=== PATIENT | female | born 1980 | race Caucasian/White ===

== ENCOUNTER 2018-05-20 00:47 | Observation (INO) | payer BC ==
[2018-05-20] MEDS ORDERED: Albuterol/Ipratropium 3.0-0.5 MG/3 ML Neb Soln ONE (00:49)
[2018-05-20] MEDS ORDERED: Albuterol/Ipratropium 3.0-0.5 MG/3 ML Neb Soln NEB ONE ×3 (00:53→01:38)
[2018-05-20] MEDS ORDERED: methylPREDNISolone Sodium Succinate 125 MG/2 ML SDV IM ONE (00:54)
[2018-05-20] MEDS ORDERED: methylPREDNISolone Sodium Succinate 125 MG/2 ML SDV IVPUSH ONE (00:55)
[2018-05-20] MEDS ORDERED: Magnesium Sulfate/Water 2 GM in Premix Bag 1 BAG IV ONE (00:56)
--- NOTE | 2018-05-20 00:57 | EDM.PDOC ---
ED HPI GENERAL MEDICAL PROBLEM - General Chief Complaint: Respiratory Problem Stated Complaint: SHORTNESS OF BREATH, ASTHMA Time Seen by Provider: 05/20/18 00:53 Source of Information: Reports: Patient, Family History Limitations: Reports: No Limitations - History of Present Illness INITIAL COMMENTS - FREE TEXT/NARRATIVE: HISTORY AND PHYSICAL: History of present illness: 37-year-old female presenting department with chief complaint of shortness of breath 2 days with past medical history of asthma. As per and patient, her breathing has been progressively getting worse over the past 2 days with increasing shortness of breath and wheezing. States that the recent smoke seemed to exacerbate her symptoms. Today she treated herself with multiple treatments of Neb's but then this evening she did not have any improvement so came to emergency department for further evaluation. States that also today she was feeling somewhat ill with some mild fever and chills but has also had some allergies and equated it to that. Patient is originally from [place] but has been here for approximately one year. She has not seen a primary care provider here. States that at one time she was on a daily medication for her asthma but has not needed it for approximately 1 year. The last 6 months she has been doing well without any treatments needed. On initial exam patient is satting in the low 80s she has generalized decreased air movement and significant wheezing heard throughout. She is somewhat diaphoretic and anxious appearing. Patient did have significant improvement with first duoneb however still generalized wheezing. After second duo-neb, solumedrol and mag patient improved but still requiring O2 to maintain sat >92% Review of systems: As per history of present illness and below otherwise all systems reviewed and negative. Past medical history: As per history of present illness and as reviewed below otherwise noncontributory. Surgical history: As per history of present illness and as reviewed below otherwise noncontributory. Social history: No reported history of drug or alcohol abuse. Family history: As per history of present illness and as reviewed below otherwise noncontributory. Physical exam: HEENT: Atraumatic, normocephalic, pupils reactive, negative for conjunctival pallor or scleral icterus, mucous membranes moist, throat clear, neck supple, nontender, trachea midline. Lungs: Generalized wheezing with decreased air movement throughout, chest nontender. Heart: S1S2, regular, negative for clicks, rubs, or JVD. Abdomen: Soft, nondistended, nontender. Negative for masses or hepatosplenomegaly. Negative for costovertebral tenderness. Pelvis: Stable nontender. Genitourinary: Deferred. Rectal: Deferred. Extremities: Atraumatic, negative for cords or calf pain. Neurovascular unremarkable. Neuro: Awake, alert, oriented. Cranial nerves II through XII unremarkable. Cerebellum unremarkable. Motor and sensory unremarkable throughout. Exam nonfocal. Diagnostics: CBC, BMP, chest x-ray Therapeutics: DuoNeb 2, Solu-Medrol 125 mg IV 1, mag sulfate 2 mg IV 1 Impression: Shortness of breath Acute asthma exacerbation Hypokalemia Plan: Patient received 3 duo-nebs as well as 125 mg Solu-Medrol IV and 2 mag sulfate. She did have significant improvement however was still requiring oxygen to maintain saturations greater than 90%. Secondary to this I did call hospitalist Dr. Stiles who accepted the patient for admission observation telemetry asthma exacerbation. Definitive disposition and diagnosis as appropriate pending reevaluation and review of above. chest Pain Score (Numeric/FACES): 5 - Related Data Allergies Allergy/AdvReac Type Severity Reaction Status Date / Time No Known Allergies Allergy Verified 05/20/18 00:54 Home Meds: Home Meds Albuterol [Proventil HFA] 200 puff INH Q6H 05/20/18 [History] ED ROS GENERAL - Review of Systems Review Of Systems: ROS reveals no pertinent complaints other than HPI. ED EXAM, GENERAL - Physical Exam Exam: See Below Course - Vital Signs Last Recorded V/S: Last Vital Signs Temp 97.4 F 05/20/18 00:56 Pulse 110 H 05/20/18 01:20 Resp 23 H 05/20/18 01:20 BP 127/65 05/20/18 01:20 Pulse Ox 97 05/20/18 01:20 - Orders/Labs/Meds Orders: Active Orders 24 hr Category Date Time Status RT Aerosol Therapy [RC] ASDIRECTED Care 05/20/18 00:53 Active RT Aerosol Therapy [RC] ASDIRECTED Care 05/20/18 01:08 Active RT Aerosol Therapy [RC] ASDIRECTED Care 05/20/18 01:38 Ordered CXR [Chest 1V Frontal] [CR] Stat Exams 05/20/18 00:55 Ordered Magnesium Sulfate/Water [Magnesium Sulfate 2 GM in Med 05/20/18 00:56 Active Water 50 ML] 2 gm Premix Bag 1 bag IV ONETIME Medication Orders Magnesium Sulfate 2 gm/ Premix 50 mls @ 25 mls/hr IV ONETIME ONE Stop: 05/20/18 02:55 Last Admin: 05/20/18 01:06 Dose: 25 mls/hr Labs: Laboratory Tests 05/20/18 05/20/18 Range/Units 00:55 00:55 WBC 11.19 H (4.0-11.0) K/uL RBC 4.23 L (4.30-5.90) M/uL Hgb 10.1 L (12.0-16.0) g/dL Hct 31.7 L (36.0-46.0) % MCV 74.9 L (80.0-98.0) fL MCH 23.9 L (27.0-32.0) pg MCHC 31.9 (31.0-37.0) g/dL RDW Std Deviation 43.5 (28.0-62.0) fl RDW Coeff of Rishabh 16 H (11.0-15.0) % Plt Count 216 (150-400) K/uL MPV 12.40 H (7.40-12.00) fL Neut % (Auto) 74.1 (48.0-80.0) % Lymph % (Auto) 12.2 L (16.0-40.0) % [place] % (Auto) 8.0 (0.0-15.0) % Eos % (Auto) 5.4 (0.0-7.0) % Baso % (Auto) 0.3 (0.0-1.5) % Neut # (Auto) 8.3 H (1.4-5.7) K/uL Lymph # (Auto) 1.4 (0.6-2.4) K/uL [place] # (Auto) 0.9 H (0.0-0.8) K/uL Eos # (Auto) 0.6 (0.0-0.7) K/uL Baso # (Auto) 0.0 (0.0-0.1) K/uL Sodium 139 (136-145) mmol/L Potassium 3.2 L (3.5-5.1) mmol/L Chloride 105 (98-107) mmol/L Carbon Dioxide 24.9 (21.0-32.0) mmol/L BUN 9 (7.0-18.0) mg/dL Creatinine 1.0 (0.6-1.0) mg/dL Est Cr Clr Drug Dosing 72.81 mL/min Estimated GFR (MDRD) > 60.0 ml/min Glucose 154 H (74-106) mg/dL Calcium 8.3 L (8.5-10.1) mg/dL Meds: Medications Generic Name Dose Route Start Last Admin Trade Name Chong PRN Reason Stop Dose Admin Magnesium Sulfate 2 gm/ Premix 50 mls @ 25 mls/hr 05/20/18 00:56 05/20/18 01: 06 IV 05/20/18 02:55 25 mls/hr ONETIME ONE Administration Discontinued Medications Generic Name Dose Route Start Last Admin Trade Name Chong PRN Reason Stop Dose Admin Albuterol/Ipratropium Confirm 05/20/18 00:49 05/20/18 01:15 Duoneb 3.0-0.5 Mg/3 Ml Administered 05/20/18 00:50 Not Given Dose 3 ml .ROUTE .STK-MED ONE Albuterol/Ipratropium 3 ml 05/20/18 00:53 05/20/18 00:55 Duoneb 3.0-0.5 Mg/3 Ml NEB 05/20/18 00:54 3 ml ONETIME ONE Administration Albuterol/Ipratropium 3 ml 05/20/18 01:08 05/20/18 01:12 Duoneb 3.0-0.5 Mg/3 Ml NEB 05/20/18 01:09 3 ml ONETIME ONE Administration Albuterol/Ipratropium 3 ml 05/20/18 01:38 Duoneb 3.0-0.5 Mg/3 Ml NEB 05/20/18 01:39 ONETIME ONE Methylprednisolone Sodium Succinate 125 mg 05/20/18 00:54 05/20/18 01:14 Solu-Medrol IM 05/20/18 00:55 Not Given ONETIME ONE Methylprednisolone Sodium Succinate 125 mg 05/20/18 00:55 05/20/18 01:01 Solu-Medrol IVPUSH 05/20/18 00:56 125 mg ONETIME ONE Administration Potassium Chloride 40 meq 05/20/18 01:26 Klor-Con M20 PO 05/20/18 01:27 ONETIME ONE Departure - Departure Time of Disposition: 01:47 Disposition: Admitted As Inpatient 67 Condition: Fair Clinical Impression: Hypoxia, Shortness of breath Asthma exacerbation Qualifiers: Asthma severity: moderate Asthma persistence: persistent Qualified Code(s): J45.41 - Moderate persistent asthma with (acute) exacerbation - Discharge Information Referrals: PCP,None [Primary Care Provider] - Forms: ED Department Discharge - My Orders Last 24 Hours: My Active Orders 05/20/18 00:53 RT Aerosol Therapy [RC] ASDIRECTED 05/20/18 00:55 CXR [Chest 1V Frontal] [CR] Stat 05/20/18 00:56 Magnesium Sulfate/Water [Magnesium Sulfate 2 GM in Water 50 ML] 2 gm Premix Bag 1 bag IV ONETIME 05/20/18 01:08 RT Aerosol Therapy [RC] ASDIRECTED 05/20/18 01:38 RT Aerosol Therapy [RC] ASDIRECTED - Assessment/Plan Last 24 Hours: My Active Orders 05/20/18 00:53 RT Aerosol Therapy [RC] ASDIRECTED 05/20/18 00:55 CXR [Chest 1V Frontal] [CR] Stat 05/20/18 00:56 Magnesium Sulfate/Water [Magnesium Sulfate 2 GM in Water 50 ML] 2 gm Premix Bag 1 bag IV ONETIME 05/20/18 01:08 RT Aerosol Therapy [RC] ASDIRECTED 05/20/18 01:38 RT Aerosol Therapy [RC] ASDIRECTED
[2018-05-20 01:17] LABS: CHLORIDE,CL 105 mmol/L (98-107); SODIUM,NA 139 mmol/L (136-145)
[2018-05-20] MEDS ORDERED: Potassium Chloride 20 MEQ Tab.ER PO ONE (01:26)
[2018-05-20] MEDS: methylPREDNISolone Sodium Succinate 125 MG/2 ML SDV IVPUSH SCH ×3 (06:13→19:48)
[2018-05-20] MEDS: Budesonide 0.5 MG/2 ML Neb Susp NEB SCH ×2 (06:57→20:08)
[2018-05-20] MEDS: Albuterol/Ipratropium 3.0-0.5 MG/3 ML Neb Soln NEB PRN ×3 (06:57→20:09)
[2018-05-20] MEDS: Potassium Chloride 20 MEQ Tab.ER PO SCH ×2 (09:30→21:21)
[2018-05-20] MEDS ORDERED: Magnesium Sulfate/Water 4 GM in Premix Bag 1 BAG IV ONE (11:19)
[2018-05-20] MEDS ORDERED: guaiFENesin/Dextromethorphan 100-10 MG/5 ML Soln 10 ML Cup PO PRN (11:21)
[2018-05-20] MEDS: Levofloxacin/Dextrose 5%-Water 750 MG in Premix Bag 1 BAG IV SCH (11:51)
--- NOTE | 2018-05-20 19:48 | CR ---
EXAM DATE: 05/20/18 PATIENT'S AGE: 37 Patient: HONG RIGGS Facility: [place], [place] Site . Site : 1980 Study: XRay Chest [id number]/31/2018 1:40:24 AM Ordering Physician: Doctor Quiros Final Report: INDICATION: SOB TECHNIQUE: Chest 1 view. COMPARISON: None. FINDINGS: Cardiovascular and mediastinum: Heart size and vasculature are normal in caliber and appearance. Mediastinum is within normal limits. Lungs and pleural space: Lungs are clear. No sign of infiltrate or mass. No sign of pleural effusion. No pneumothorax. Bones and soft tissues: No significant findings. IMPRESSION: Unremarkable chest. Dictated by: Abiel Farfan MD @ 05/20/2018 01:56:17 (Electronic Signature) Report Signed by Proxy. [facility]
--- NOTE | 2018-05-20 20:21 | PCM.HP ---
H&P History of Present Illness - General Date of Service: 05/20/18 Admit Problem/Dx: Admission Diagnosis/Problem Admission Diagnosis/Problem Asthma with acute exacerbation Source of Information: Patient History Limitations: Reports: No Limitations - History of Present Illness Initial Comments - Free Text/Narative: Patient 37 y old female with a asthma controlled by albuterol pump once a week presented to [facility] due to severe SOB and wheezing that started 4-5 days donaldo with allergy symptoms and was progressively getting worse., When she arrived in [facility] , patient was found to be hypoxic at room air in the 84 % in [facility] . She says she had some cough productive of yellow green phlegm for the past few days and mild fever , cold chills no sweat. She also had severe nasal congestion and sinus pressure few days ago and used fluticasone nasal. Also says she has yellow green nasal discharge.She does not smoke , has multiple allergies. Says she was tested by [employer] and out of 55 allergens she was tested she was allergic to 48 and she received allergy treatment and shots over the next years . She is allergic to environmental allergens , but she is not allergic to food or drugs.Has asthma since age 9 Duration of Symptoms: Reports: Day(s): chest Pain Score (Numeric/FACES): 0 - Related Data Allergies/Adverse Reactions: Allergies Allergy/AdvReac Type Severity Reaction Status Date / Time pollen extracts Allergy Airway Verified 05/20/18 06:33 Tightness cats Allergy Airway Uncoded 05/20/18 06:33 Tightness dogs Allergy Airway Uncoded 05/20/18 06:33 Tightness dust Allergy Airway Uncoded 05/20/18 06:33 Tightness environmental Allergy Airway Uncoded 05/20/18 06:33 Tightness perfume Allergy Airway Uncoded 05/20/18 06:33 Tightness pollen Allergy Airway Uncoded 05/20/18 06:33 Tightness Home Medications: Home Meds Albuterol Sulfate 1.25 mg IH Q4HR PRN 05/20/18 [History] Albuterol [Proventil HFA] 200 puff INH Q6H 05/20/18 [History] Past Medical History Respiratory History: Reports: Asthma - Infectious Disease History Infectious Disease History: Reports: Chicken Pox - Past Surgical History HEENT Surgical History: Reports: Other (See Below) Other HEENT Surgeries/Procedures: [place] teeth surgically removed Social & Family History - Family History Family Medical History: Noncontributory - Tobacco Use Smoking Status *Q: Never Smoker Second Hand Smoke Exposure: No - Caffeine Use Caffeine Use: Reports: Coffee Other Caffeine Use: 1 per day - Recreational Drug Use Recreational Drug Use: No H&P Review of Systems - Review of Systems: Review Of Systems: See Below General: Reports: Fever, Chills, Diaphoresis HEENT: Reports: Rhinitis, Sinus Congestion Pulmonary: Reports: Shortness of Breath, Wheezing, Cough, Sputum (yellow green) Cardiovascular: Reports: No Symptoms Gastrointestinal: Reports: No Symptoms Genitourinary: Reports: No Symptoms Musculoskeletal: Reports: No Symptoms Skin: Reports: No Symptoms Psychiatric: Reports: Agitation Neurological: Reports: No Symptoms Hematologic/Lymphatic: Reports: No Symptoms Immunologic: Reports: Environmental Allergy, Seasonal Allergy, Grass Allergy, Mold Allergy, Pollen Allergy. Denies: Food Allergy Exam - Exam Exam: See Below - Vital Signs Vital Signs: Last Vital Signs Temp 97.6 F 05/20/18 19:59 Pulse 102 H 05/20/18 19:59 Resp 18 05/20/18 19:59 BP 135/67 05/20/18 19:59 Pulse Ox 95 05/20/18 19:59 Weight: 277 lb 11.2 oz - Exam Quality Assessment: Supplemental Oxygen (2 l ) General: Alert, Oriented HEENT: Conjunctiva Clear, EACs Clear, EOMI, Hearing Intact Neck: Supple, Trachea Midline Lungs: Decreased Breath Sounds, Wheezing, Other (decresed air entry) Cardiovascular: Regular Rate, Regular Rhythm, Normal S1, Normal S2 GI/Abdominal Exam: Normal Bowel Sounds, Soft, Non-Tender, No Organomegaly, No Distention Rectal (Female) Exam: Normal Exam Back Exam: Normal Inspection Extremities: Normal Inspection Skin: Warm, Dry Neurological: Cranial Nerves Intact Neuro Extensive - Mental Status: Alert, Oriented x3 Neuro Extensive - Motor, Sensory, Reflexes: CN II-XII Intact, Normal Gait, Normal Reflexes Psychiatric: Alert, Normal Affect, Normal Mood - Patient Data Lab Results Last 24 hrs: Laboratory Results - last 24 hr 05/20/18 05/20/18 05/20/18 Range/Units 00:55 00:55 00:55 WBC 11.19 H (4.0-11.0) K/uL RBC 4.23 L (4.30-5.90) M/uL Hgb 10.1 L (12.0-16.0) g/dL Hct 31.7 L (36.0-46.0) % MCV 74.9 L (80.0-98.0) fL MCH 23.9 L (27.0-32.0) pg MCHC 31.9 (31.0-37.0) g/dL RDW Std Deviation 43.5 (28.0-62.0) fl RDW Coeff of Rishabh 16 H (11.0-15.0) % Plt Count 216 (150-400) K/uL MPV 12.40 H (7.40-12.00) fL Neut % (Auto) 74.1 (48.0-80.0) % Lymph % (Auto) 12.2 L (16.0-40.0) % [place] % (Auto) 8.0 (0.0-15.0) % Eos % (Auto) 5.4 (0.0-7.0) % Baso % (Auto) 0.3 (0.0-1.5) % Neut # (Auto) 8.3 H (1.4-5.7) K/uL Lymph # (Auto) 1.4 (0.6-2.4) K/uL [place] # (Auto) 0.9 H (0.0-0.8) K/uL Eos # (Auto) 0.6 (0.0-0.7) K/uL Baso # (Auto) 0.0 (0.0-0.1) K/uL Sodium 139 (136-145) mmol/L Potassium 3.2 L (3.5-5.1) mmol/L Chloride 105 (98-107) mmol/L Carbon Dioxide 24.9 (21.0-32.0) mmol/L BUN 9 (7.0-18.0) mg/dL Creatinine 1.0 (0.6-1.0) mg/dL Est Cr Clr Drug Dosing 72.81 mL/min Estimated GFR (MDRD) > 60.0 ml/min Glucose 154 H (74-106) mg/dL Calcium 8.3 L (8.5-10.1) mg/dL Phosphorus 3.3 (2.6-4.7) mg/dL Magnesium 1.7 L (1.8-2.4) mg/dL Result Diagrams: 05/20/18 00:55 05/20/18 00:55 - Problem List (1) Anemia SNOMED Code(s): 021628852 ICD Code: D64.9 - ANEMIA, UNSPECIFIED Status: Acute Current Visit: Yes Qualifiers: Anemia type: iron deficiency (2) Asthma exacerbation SNOMED Code(s): 440731473 ICD Code: J45.901 - UNSPECIFIED ASTHMA WITH (ACUTE) EXACERBATION Status: Acute Current Visit: Yes Qualifiers: Asthma severity: moderate Asthma persistence: persistent Qualified Code(s ): J45.41 - Moderate persistent asthma with (acute) exacerbation (3) Hypoxia SNOMED Code(s): 354580106 ICD Code: R09.02 - HYPOXEMIA Status: Acute Current Visit: Yes (4) Shortness of breath SNOMED Code(s): 874956017 ICD Code: R06.02 - SHORTNESS OF BREATH Status: Acute Current Visit: Yes (5) Hypokalemia SNOMED Code(s): 07210832 ICD Code: E87.6 - HYPOKALEMIA Status: Acute Current Visit: Yes (6) Sinusitis SNOMED Code(s): 46804443 ICD Code: J32.9 - CHRONIC SINUSITIS, UNSPECIFIED Status: Acute Current Visit: Yes (7) Bronchitis SNOMED Code(s): 53260374 ICD Code: J40 - BRONCHITIS, NOT SPECIFIED ACUTE OR CHRONIC Status: Acute Current Visit: Yes Problem List Initiated/Reviewed/Updated: Yes Orders Last 24hrs: Active Orders 24 hr Category Date Time Status Admission Status [Patient Status] [ADT] Stat ADT 05/20/18 01:49 Active Oxygen Therapy [RC] ASDIRECTED Care 05/19/18 21:00 Active RT Aerosol Therapy [RC] ASDIRECTED Care 05/20/18 02:48 Active Vital Signs [RC] Q4H Care 05/19/18 21:00 Active Regular Diet [DIET] Diet 05/20/18 Breakfast Active BASIC METABOLIC PANEL,BMP [CHEM] DAILY Lab 05/21/18 05:11 Ordered CBC WITH AUTO DIFF [HEME] DAILY Lab 05/21/18 05:11 Ordered CBC WITH AUTO DIFF [HEME] DAILY Lab 05/22/18 05:11 Ordered Albuterol/Ipratropium [DuoNeb 3.0-0.5 MG/3 ML] Med 05/20/18 02:47 Active 3 ml NEB Q4HRRT PRN Budesonide [Pulmicort] Med 05/20/18 06:00 Active 0.5 mg NEB BIDRT Dextromethorphan/guaiFENesin [Robitussin DM] Med 05/20/18 11:21 Active 10 ml PO TID PRN Fluticasone Propionate [Flonase] Med 05/20/18 21:00 Active 0 gm NASBOTH BID Levofloxacin/Dextrose 5%-Water [Levaquin in D5W 750 MG/ Med 05/20/18 11:30 Active 150 ML] 750 mg Premix Bag 1 bag IV Q24H Oxymetazoline [Afrin Original 0.05% Nasal [place]] Med 05/20/18 21:00 Active 0 ml TOBY BID Potassium Chloride [Klor-Con M20] Med 05/20/18 09:00 Active 40 meq PO BID methylPREDNISolone Sod Succ [Solu-MEDROL] Med 05/20/18 07:00 Active 60 mg IVPUSH Q6H Medication Orders Albuterol/Ipratropium (Duoneb 3.0-0.5 Mg/3 Ml) 3 ml NEB Q4HRRT PRN PRN Reason: Wheezing Last Admin: 05/20/18 20:09 Dose: 3 ml Admin: 05/20/18 14:16 Dose: 3 ml Admin: 05/20/18 06:57 Dose: 3 ml Budesonide (Pulmicort) 0.5 mg NEB BIDRT BARRY Last Admin: 05/20/18 20:08 Dose: 0.5 mg Admin: 05/20/18 06:57 Dose: 0.5 mg Fluticasone Propionate (Flonase) 0 gm NASBOTH BID BARRY Guaifenesin/Dextromethorphan (Robitussin Dm) 10 ml PO TID PRN PRN Reason: Cough Levofloxacin/Dextrose 750 mg/ (Premix) 150 mls @ 100 mls/hr IV Q24H [facility] Last Admin: 05/20/18 11:51 Dose: 100 mls/hr Methylprednisolone Sodium Succinate (Solu-Medrol) 60 mg IVPUSH Q6H [facility] Last Admin: 05/20/18 19:48 Dose: 60 mg Admin: 05/20/18 12:00 Dose: 60 mg Admin: 05/20/18 06:13 Dose: 60 mg Oxymetazoline HCl (Afrin Original 0.05% Nasal [place]) 0 ml TOBY BID BARRY Potassium Chloride (Klor-Con M20) 40 meq PO BID BARRY Stop: 05/21/18 09:01 Last Admin: 05/20/18 09:30 Dose: 40 meq assessment as in problem list above plan will admit patient to telemetry , solumedrol 60 mg iv q 6 h , duoneb neb treatment 1 neb q 4 h prn , budesonide 0.5 mg neb q 12h, Magnesium sulphate 4 g iv one dose, supplemental o2 , iv Levaquin for bronchitis , sinusitis -will give patient levaquin 750 mg iv daily robitussin cough syrup Nasal spray with fluticasone and oxymethasolin cetirizine 10 mg po daily will supplement K with KCl po. for anemia- patient probable has heavy periods and will need iron supplementation
[2018-05-20] MEDS: Fluticasone Propionate Nasal Spray 16 GM Bottle NASBOTH SCH (21:20)
[2018-05-20] MEDS: Oxymetazoline 0.05% Nasal Spray 15 ML Bottle NAS SCH (21:22)
[2018-05-21] MEDS: methylPREDNISolone Sodium Succinate 125 MG/2 ML SDV IVPUSH SCH ×4 (00:23→18:07)
[2018-05-21] MEDS: Albuterol/Ipratropium 3.0-0.5 MG/3 ML Neb Soln NEB PRN ×2 (00:23→05:59)
[2018-05-21] MEDS: Budesonide 0.5 MG/2 ML Neb Susp NEB SCH ×2 (05:59→20:45)
[2018-05-21 06:52] LABS: CHLORIDE,CL 108 mmol/L (98-107); SODIUM,NA 139 mmol/L (136-145)
[2018-05-21] MEDS: Oxymetazoline 0.05% Nasal Spray 15 ML Bottle NAS SCH (08:34)
[2018-05-21] MEDS: Potassium Chloride 20 MEQ Tab.ER PO SCH (08:35)
[2018-05-21] MEDS: Cetirizine 10 MG Tab PO SCH (08:35)
[2018-05-21] MEDS: Fluticasone Propionate Nasal Spray 16 GM Bottle NASBOTH SCH ×2 (08:37→20:15)
[2018-05-21] MEDS: Levofloxacin/Dextrose 5%-Water 750 MG in Premix Bag 1 BAG IV SCH (11:41)
[2018-05-21] MEDS ORDERED: Albuterol/Ipratropium 3.0-0.5 MG/3 ML Neb Soln NEB SCH (14:45)
--- NOTE | 2018-05-21 14:45 | PCM.PN ---
- General Info Date of Service: 05/21/18 - Review of Systems Systems Review Comment:: reports shortness of breath with walking and talking. - Patient Data Vitals - Most Recent: Last Vital Signs Temp 37.0 C 05/21/18 12:00 Pulse 107 H 05/21/18 12:00 Resp 20 05/21/18 12:00 BP 130/79 05/21/18 12:00 Pulse Ox 92 L 05/21/18 12:00 Weight - Most Recent: 125.963 kg I&O - Last 24 Hours: Intake & Output 05/20/18 05/21/18 05/21/18 22:59 06:59 14:59 Intake Total 1938 450 Output Total 1400 1300 Balance 538 -850 Lab Results Last 24 Hours: Laboratory Results - last 24 hr 05/21/18 05/21/18 05/21/18 Range/Units 05:54 05:54 05:54 WBC 25.85 H (4.0-11.0) K/uL RBC 4.33 (4.30-5.90) M/uL Hgb 10.0 L (12.0-16.0) g/dL Hct 32.0 L (36.0-46.0) % MCV 73.9 L (80.0-98.0) fL MCH 23.1 L (27.0-32.0) pg MCHC 31.3 (31.0-37.0) g/dL RDW Std Deviation 46.1 (28.0-62.0) fl RDW Coeff of Rishabh 17 H (11.0-15.0) % Plt Count 248 (150-400) K/uL Add Manual Diff YES Neutrophils % (Manual) 93 H (48.0-80.0) % Band Neutrophils % 4 % Lymphocytes % (Manual) 3 L (16.0-40.0) % Nucleated RBC % 0.0 /100WBC Absolute Seg Neuts 24.0 H (1.4-5.7) Band Neutrophils # 1.0 Lymphocytes # (Manual) 0.8 (0.6-2.4) Nucleated RBCs # 0 K/uL Sodium 139 (136-145) mmol/L Potassium 4.4 (3.5-5.1) mmol/L Chloride 108 H (98-107) mmol/L Carbon Dioxide 26.0 (21.0-32.0) mmol/L BUN 10 (7.0-18.0) mg/dL Creatinine 0.8 (0.6-1.0) mg/dL Est Cr Clr Drug Dosing 91.01 mL/min Estimated GFR (MDRD) > 60.0 ml/min Glucose 177 H (74-106) mg/dL Calcium 8.3 L (8.5-10.1) mg/dL Magnesium 2.5 H (1.8-2.4) mg/dL Med Orders - Current: Current Medications Budesonide (Pulmicort) 0.5 mg NEB BIDRT [facility] Last Admin: 05/21/18 05:59 Dose: 0.5 mg Cetirizine HCl (Zyrtec) 10 mg PO DAILY [facility] Last Admin: 05/21/18 08:35 Dose: 10 mg Fluticasone Propionate (Flonase) 0 gm NASBOTH BID [facility] Last Admin: 05/21/18 08:37 Dose: Not Given Guaifenesin/Dextromethorphan (Robitussin Dm) 10 ml PO TID PRN PRN Reason: Cough Last Admin: 05/21/18 08:38 Dose: 10 ml Levofloxacin/Dextrose 750 mg/ (Premix) 150 mls @ 100 mls/hr IV Q24H [facility] Last Admin: 05/21/18 11:41 Dose: 100 mls/hr Methylprednisolone Sodium Succinate (Solu-Medrol) 60 mg IVPUSH Q6H [facility] Last Admin: 05/21/18 13:09 Dose: 60 mg Naproxen (Naproxen Sodium) 220 mg PO Q12HR PRN PRN Reason: Headache Discontinued Medications Albuterol/Ipratropium (Duoneb 3.0-0.5 Mg/3 Ml) Confirm Administered Dose 3 ml .ROUTE .STK-MED ONE Stop: 05/20/18 00:50 Last Admin: 05/20/18 01:15 Dose: Not Given Albuterol/Ipratropium (Duoneb 3.0-0.5 Mg/3 Ml) 3 ml NEB ONETIME ONE Stop: 05/20/18 00:54 Last Admin: 05/20/18 00:55 Dose: 3 ml Albuterol/Ipratropium (Duoneb 3.0-0.5 Mg/3 Ml) 3 ml NEB ONETIME ONE Stop: 05/20/18 01:09 Last Admin: 05/20/18 01:12 Dose: 3 ml Albuterol/Ipratropium (Duoneb 3.0-0.5 Mg/3 Ml) 3 ml NEB ONETIME ONE Stop: 05/20/18 01:39 Last Admin: 05/20/18 01:46 Dose: 3 ml Albuterol/Ipratropium (Duoneb 3.0-0.5 Mg/3 Ml) 3 ml NEB Q4HRRT PRN PRN Reason: Wheezing Last Admin: 05/21/18 05:59 Dose: 3 ml Magnesium Sulfate 2 gm/ Premix 50 mls @ 25 mls/hr IV ONETIME ONE Stop: 05/20/18 02:55 Last Admin: 05/20/18 01:06 Dose: 25 mls/hr Magnesium Sulfate 4 gm/ Premix 100 mls @ 50 mls/hr IV ONETIME ONE Stop: 05/20/18 13:18 Last Admin: 05/20/18 13:53 Dose: 50 mls/hr Methylprednisolone Sodium Succinate (Solu-Medrol) 125 mg IM ONETIME ONE Stop: 05/20/18 00:55 Last Admin: 05/20/18 01:14 Dose: Not Given Methylprednisolone Sodium Succinate (Solu-Medrol) 125 mg IVPUSH ONETIME ONE Stop: 05/20/18 00:56 Last Admin: 05/20/18 01:01 Dose: 125 mg Oxymetazoline HCl (Afrin Original 0.05% Nasal [place]) 0 ml TOBY BID BARRY Last Admin: 05/21/18 08:34 Dose: 1 spr Potassium Chloride (Klor-Con M20) 40 meq PO ONETIME ONE Stop: 05/20/18 01:27 Last Admin: 05/20/18 01:58 Dose: 40 meq Potassium Chloride (Klor-Con M20) 40 meq PO BID BARRY Stop: 05/21/18 09:01 Last Admin: 05/21/18 08:35 Dose: 40 meq - Exam General: Alert, Oriented Neck: Supple Lungs: Decreased Breath Sounds Cardiovascular: Regular Rate, Regular Rhythm GI/Abdominal Exam: Soft, Non-Tender Extremities: Non-Tender, No Pedal Edema Skin: Warm, Dry, Intact - Problem List Review Problem List Initiated/Reviewed/Updated: Yes - My Orders Last 24 Hours: My Active Orders 05/20/18 23:29 Naproxen Sodium 220 mg PO Q12HR PRN 05/21/18 14:45 Albuterol/Ipratropium [DuoNeb 3.0-0.5 MG/3 ML] 3 ml NEB Q6H - Plan Plan:: 37 yo female admitted with asthma exacerbation. Patient is being treated with duonebs, solumedrol, and Levaquin.
[2018-05-21] MEDS: Albuterol/Ipratropium 3.0-0.5 MG/3 ML Neb Soln NEB SCH (17:31)
[2018-05-22] MEDS: Albuterol/Ipratropium 3.0-0.5 MG/3 ML Neb Soln NEB SCH ×4 (00:15→17:53)
[2018-05-22] MEDS: methylPREDNISolone Sodium Succinate 125 MG/2 ML SDV IVPUSH SCH ×4 (00:16→18:03)
[2018-05-22] MEDS: Budesonide 0.5 MG/2 ML Neb Susp NEB SCH ×2 (06:04→20:34)
[2018-05-22 08:29] LABS: CHLORIDE,CL 107 mmol/L (98-107); SODIUM,NA 138 mmol/L (136-145)
[2018-05-22] MEDS: Fluticasone Propionate Nasal Spray 16 GM Bottle NASBOTH SCH ×2 (08:36→20:08)
[2018-05-22] MEDS: Cetirizine 10 MG Tab PO SCH (08:37)
--- NOTE | 2018-05-22 10:41 | PCM.PN ---
- General Info Date of Service: 05/22/18 - Review of Systems Systems Review Comment:: patient reports shortness of breath with walking. does not feel ready to go home - Patient Data Vitals - Most Recent: Last Vital Signs Temp 36.8 C 05/22/18 08:00 Pulse 87 05/22/18 08:00 Resp 19 05/22/18 08:00 BP 121/66 05/22/18 08:00 Pulse Ox 90 L 05/22/18 08:00 Weight - Most Recent: 125.963 kg I&O - Last 24 Hours: Intake & Output 05/21/18 05/22/18 05/22/18 22:59 06:59 14:59 Intake Total 900 850 Output Total 700 1500 Balance 200 -650 Lab Results Last 24 Hours: Laboratory Results - last 24 hr 05/22/18 05/22/18 Range/Units 06:23 06:23 WBC 27.07 H (4.0-11.0) K/uL RBC 4.22 L (4.30-5.90) M/uL Hgb 9.9 L (12.0-16.0) g/dL Hct 31.2 L (36.0-46.0) % MCV 73.9 L (80.0-98.0) fL MCH 23.5 L (27.0-32.0) pg MCHC 31.7 (31.0-37.0) g/dL RDW Std Deviation 46.5 (28.0-62.0) fl RDW Coeff of Rishabh 17 H (11.0-15.0) % Plt Count 253 (150-400) K/uL MPV 11.70 (7.40-12.00) fL Add Manual Diff YES Neutrophils % (Manual) 91 H (48.0-80.0) % Band Neutrophils % 2 % Lymphocytes % (Manual) 3 L (16.0-40.0) % Monocytes % (Manual) 4 (0.0-15.0) % Nucleated RBC % 0.2 /100WBC Absolute Seg Neuts 24.6 H (1.4-5.7) Band Neutrophils # 0.5 Lymphocytes # (Manual) 0.8 (0.6-2.4) Monocytes # (Manual) 1.1 H (0.0-0.8) Nucleated RBCs # 0 K/uL Sodium 138 (136-145) mmol/L Potassium 4.6 (3.5-5.1) mmol/L Chloride 107 (98-107) mmol/L Carbon Dioxide 25.4 (21.0-32.0) mmol/L BUN 17 (7.0-18.0) mg/dL Creatinine 0.8 (0.6-1.0) mg/dL Est Cr Clr Drug Dosing 91.01 mL/min Estimated GFR (MDRD) > 60.0 ml/min Glucose 159 H (74-106) mg/dL Calcium 8.5 (8.5-10.1) mg/dL Med Orders - Current: Current Medications Albuterol/Ipratropium (Duoneb 3.0-0.5 Mg/3 Ml) 3 ml NEB Q6H [facility] Last Admin: 05/22/18 06:04 Dose: 3 ml Budesonide (Pulmicort) 0.5 mg NEB BIDRT [facility] Last Admin: 05/22/18 06:04 Dose: 0.5 mg Cetirizine HCl (Zyrtec) 10 mg PO DAILY [facility] Last Admin: 05/22/18 08:37 Dose: 10 mg Fluticasone Propionate (Flonase) 0 gm NASBOTH BID [facility] Last Admin: 05/22/18 08:36 Dose: Not Given Guaifenesin/Dextromethorphan (Robitussin Dm) 10 ml PO TID PRN PRN Reason: Cough Last Admin: 05/21/18 08:38 Dose: 10 ml Levofloxacin/Dextrose 750 mg/ (Premix) 150 mls @ 100 mls/hr IV Q24H [facility] Last Admin: 05/21/18 11:41 Dose: 100 mls/hr Methylprednisolone Sodium Succinate (Solu-Medrol) 60 mg IVPUSH Q6H [facility] Last Admin: 05/22/18 06:27 Dose: 60 mg Naproxen (Naproxen Sodium) 220 mg PO Q12HR PRN PRN Reason: Headache Discontinued Medications Albuterol/Ipratropium (Duoneb 3.0-0.5 Mg/3 Ml) Confirm Administered Dose 3 ml .ROUTE .STK-MED ONE Stop: 05/20/18 00:50 Last Admin: 05/20/18 01:15 Dose: Not Given Albuterol/Ipratropium (Duoneb 3.0-0.5 Mg/3 Ml) 3 ml NEB ONETIME ONE Stop: 05/20/18 00:54 Last Admin: 05/20/18 00:55 Dose: 3 ml Albuterol/Ipratropium (Duoneb 3.0-0.5 Mg/3 Ml) 3 ml NEB ONETIME ONE Stop: 05/20/18 01:09 Last Admin: 05/20/18 01:12 Dose: 3 ml Albuterol/Ipratropium (Duoneb 3.0-0.5 Mg/3 Ml) 3 ml NEB ONETIME ONE Stop: 05/20/18 01:39 Last Admin: 05/20/18 01:46 Dose: 3 ml Albuterol/Ipratropium (Duoneb 3.0-0.5 Mg/3 Ml) 3 ml NEB Q4HRRT PRN PRN Reason: Wheezing Last Admin: 05/21/18 05:59 Dose: 3 ml Albuterol/Ipratropium (Duoneb 3.0-0.5 Mg/3 Ml) 3 ml NEB Q6H [facility] Last Admin: 05/21/18 17:22 Dose: Not Given Magnesium Sulfate 2 gm/ Premix 50 mls @ 25 mls/hr IV ONETIME ONE Stop: 05/20/18 02:55 Last Admin: 05/20/18 01:06 Dose: 25 mls/hr Magnesium Sulfate 4 gm/ Premix 100 mls @ 50 mls/hr IV ONETIME ONE Stop: 05/20/18 13:18 Last Admin: 05/20/18 13:53 Dose: 50 mls/hr Methylprednisolone Sodium Succinate (Solu-Medrol) 125 mg IM ONETIME ONE Stop: 05/20/18 00:55 Last Admin: 05/20/18 01:14 Dose: Not Given Methylprednisolone Sodium Succinate (Solu-Medrol) 125 mg IVPUSH ONETIME ONE Stop: 05/20/18 00:56 Last Admin: 05/20/18 01:01 Dose: 125 mg Oxymetazoline HCl (Afrin Original 0.05% Nasal [place]) 0 ml TOBY BID [facility] Last Admin: 05/21/18 08:34 Dose: 1 spr Potassium Chloride (Klor-Con M20) 40 meq PO ONETIME ONE Stop: 05/20/18 01:27 Last Admin: 05/20/18 01:58 Dose: 40 meq Potassium Chloride (Klor-Con M20) 40 meq PO BID [facility] Stop: 05/21/18 09:01 Last Admin: 05/21/18 08:35 Dose: 40 meq - Exam General: Alert, Oriented Neck: Supple Lungs: Clear to Auscultation, Normal Respiratory Effort Cardiovascular: Regular Rhythm, Tachycardia GI/Abdominal Exam: Soft, Non-Tender Extremities: Non-Tender, No Pedal Edema Skin: Warm, Dry, Intact Neurological: No New Focal Deficit - Problem List Review Problem List Initiated/Reviewed/Updated: Yes - My Orders Last 24 Hours: My Active Orders 05/21/18 18:00 Albuterol/Ipratropium [DuoNeb 3.0-0.5 MG/3 ML] 3 ml NEB Q6H 05/23/18 05:11 BASIC METABOLIC PANEL,BMP [CHEM] AM CBC WITH AUTO DIFF [HEME] AM 05/24/18 05:11 BASIC METABOLIC PANEL,BMP [CHEM] AM CBC WITH AUTO DIFF [HEME] AM - Plan Plan:: 37 yo female admitted with asthma exacerbation. Patient having slow progress. Will continue duonebs, solumedrol, and Levaquin.
[2018-05-22] MEDS: Levofloxacin/Dextrose 5%-Water 750 MG in Premix Bag 1 BAG IV SCH (11:06)
[2018-05-23] MEDS ORDERED: predniSONE 10 MG Tab PO SCH
[2018-05-23] MEDS: Albuterol/Ipratropium 3.0-0.5 MG/3 ML Neb Soln NEB SCH ×3 (00:22→11:24)
[2018-05-23] MEDS: methylPREDNISolone Sodium Succinate 125 MG/2 ML SDV IVPUSH SCH ×3 (00:23→12:03)
[2018-05-23 06:31] LABS: CHLORIDE,CL 106 mmol/L (98-107); SODIUM,NA 140 mmol/L (136-145)
[2018-05-23] MEDS: Budesonide 0.5 MG/2 ML Neb Susp NEB SCH (07:38)
[2018-05-23] MEDS: Fluticasone Propionate Nasal Spray 16 GM Bottle NASBOTH SCH (08:12)
[2018-05-23] MEDS: Cetirizine 10 MG Tab PO SCH (08:15)
[2018-05-23] MEDS: Levofloxacin/Dextrose 5%-Water 750 MG in Premix Bag 1 BAG IV SCH (11:25)
--- NOTE | 2018-05-23 12:00 | PCM.DCSUM1 ---
Discharge Summary - Discharge Data Discharge Date: 05/23/18 Discharge Disposition: Home, Self-Care 01 Condition: Good - Patient Summary/Data Hospital Course: Patient 37 y old female admitted for asthma exacebation. She presented with shortness of breath, wheezing and productive cough. She was noted to be satting 84% on room air with heart rate inthe 90s-100s. She normally is controlled with asmanex and albuterol inhaler but she ran out of her asmanex prescription. She was treated with duonebs and IV solumedrol. She did make improvement and on discharge she was satting 92% on room air with exercise. She was discharge on levaquin, presdnisone for three more days and her Asmanex prescription was refilled. - Discharge Plan Prescriptions/Med Rec: levoFLOXacin [Levaquin] 500 mg PO DAILY #3 tab Mometasone Furoate [Asmanex] 220 mcg IH DAILY #1 aer.pow.ba predniSONE [Prednisone] 50 mg PO DAILY #3 tablet Home Medications: Home Meds Albuterol Sulfate 1.25 mg IH Q4HR PRN 05/20/18 [History] Albuterol [Proventil HFA] 200 puff INH Q6H 05/20/18 [History] Mometasone Furoate [Asmanex] 220 mcg IH DAILY #1 aer.pow.ba 05/23/18 [Rx] levoFLOXacin [Levaquin] 500 mg PO DAILY #3 tab 05/23/18 [Rx] predniSONE [Prednisone] 50 mg PO DAILY #3 tablet 05/23/18 [Rx] Patient Handouts: Hypoxia, Asthma, Adult, Mometasone inhalation powder, Levofloxacin tablets, Prednisone tablets Forms: ED Department Discharge Referrals: [facility] [Outside] PCP,None [Primary Care Provider] - - Patient Data Vitals - Most Recent: Last Vital Signs Temp 36.3 C 05/23/18 11:45 Pulse 81 05/23/18 11:45 Resp 18 05/23/18 11:45 BP 125/71 05/23/18 11:45 Pulse Ox 91 L 05/23/18 11:45 Weight - Most Recent: 125.963 kg I&O - Last 24 hours: Intake & Output 05/22/18 05/23/18 05/23/18 22:59 06:59 14:59 Intake Total 1400 500 Output Total 900 400 Balance 500 100 Lab Results - Last 24 hrs: Laboratory Results - last 24 hr 05/23/18 05/23/18 Range/Units 05:58 05:58 WBC 22.42 H (4.0-11.0) K/uL RBC 4.34 (4.30-5.90) M/uL Hgb 10.1 L (12.0-16.0) g/dL Hct 32.0 L (36.0-46.0) % MCV 73.7 L (80.0-98.0) fL MCH 23.3 L (27.0-32.0) pg MCHC 31.6 (31.0-37.0) g/dL RDW Std Deviation 46.4 (28.0-62.0) fl RDW Coeff of Rishabh 17 H (11.0-15.0) % Plt Count 259 (150-400) K/uL MPV 12.20 H (7.40-12.00) fL Add Manual Diff YES Neutrophils % (Manual) 87 H (48.0-80.0) % Band Neutrophils % 2 % Lymphocytes % (Manual) 8 L (16.0-40.0) % Monocytes % (Manual) 3 (0.0-15.0) % Nucleated RBC % 0.0 /100WBC Absolute Seg Neuts 19.5 H (1.4-5.7) Band Neutrophils # 0.4 Lymphocytes # (Manual) 1.8 (0.6-2.4) Monocytes # (Manual) 0.7 (0.0-0.8) Nucleated RBCs # 0 K/uL Sodium 140 (136-145) mmol/L Potassium 3.9 (3.5-5.1) mmol/L Chloride 106 (98-107) mmol/L Carbon Dioxide 24.9 (21.0-32.0) mmol/L BUN 18 (7.0-18.0) mg/dL Creatinine 0.9 (0.6-1.0) mg/dL Est Cr Clr Drug Dosing 80.90 mL/min Estimated GFR (MDRD) > 60.0 ml/min Glucose 201 H (74-106) mg/dL Calcium 8.5 (8.5-10.1) mg/dL Med Orders - Current: Current Medications Albuterol/Ipratropium (Duoneb 3.0-0.5 Mg/3 Ml) 3 ml NEB Q6H [facility] Last Admin: 05/23/18 11:24 Dose: 3 ml Budesonide (Pulmicort) 0.5 mg NEB BIDRT [facility] Last Admin: 05/23/18 07:38 Dose: 0.5 mg Cetirizine HCl (Zyrtec) 10 mg PO DAILY [facility] Last Admin: 05/23/18 08:15 Dose: 10 mg Fluticasone Propionate (Flonase) 0 gm NASBOTH BID [facility] Last Admin: 05/23/18 08:12 Dose: Not Given Guaifenesin/Dextromethorphan (Robitussin Dm) 10 ml PO TID PRN PRN Reason: Cough Last Admin: 05/21/18 08:38 Dose: 10 ml Levofloxacin/Dextrose 750 mg/ (Premix) 150 mls @ 100 mls/hr IV Q24H [facility] Last Admin: 05/23/18 11:25 Dose: 100 mls/hr Methylprednisolone Sodium Succinate (Solu-Medrol) 60 mg IVPUSH Q6H [facility] Last Admin: 05/23/18 06:21 Dose: 60 mg Naproxen (Naproxen Sodium) 220 mg PO Q12HR PRN PRN Reason: Headache Discontinued Medications Albuterol/Ipratropium (Duoneb 3.0-0.5 Mg/3 Ml) Confirm Administered Dose 3 ml .ROUTE .STK-MED ONE Stop: 05/20/18 00:50 Last Admin: 05/20/18 01:15 Dose: Not Given Albuterol/Ipratropium (Duoneb 3.0-0.5 Mg/3 Ml) 3 ml NEB ONETIME ONE Stop: 05/20/18 00:54 Last Admin: 05/20/18 00:55 Dose: 3 ml Albuterol/Ipratropium (Duoneb 3.0-0.5 Mg/3 Ml) 3 ml NEB ONETIME ONE Stop: 05/20/18 01:09 Last Admin: 05/20/18 01:12 Dose: 3 ml Albuterol/Ipratropium (Duoneb 3.0-0.5 Mg/3 Ml) 3 ml NEB ONETIME ONE Stop: 05/20/18 01:39 Last Admin: 05/20/18 01:46 Dose: 3 ml Albuterol/Ipratropium (Duoneb 3.0-0.5 Mg/3 Ml) 3 ml NEB Q4HRRT PRN PRN Reason: Wheezing Last Admin: 05/21/18 05:59 Dose: 3 ml Albuterol/Ipratropium (Duoneb 3.0-0.5 Mg/3 Ml) 3 ml NEB Q6H [facility] Last Admin: 05/21/18 17:22 Dose: Not Given Magnesium Sulfate 2 gm/ Premix 50 mls @ 25 mls/hr IV ONETIME ONE Stop: 05/20/18 02:55 Last Admin: 05/20/18 01:06 Dose: 25 mls/hr Magnesium Sulfate 4 gm/ Premix 100 mls @ 50 mls/hr IV ONETIME ONE Stop: 05/20/18 13:18 Last Admin: 05/20/18 13:53 Dose: 50 mls/hr Methylprednisolone Sodium Succinate (Solu-Medrol) 125 mg IM ONETIME ONE Stop: 05/20/18 00:55 Last Admin: 05/20/18 01:14 Dose: Not Given Methylprednisolone Sodium Succinate (Solu-Medrol) 125 mg IVPUSH ONETIME ONE Stop: 05/20/18 00:56 Last Admin: 05/20/18 01:01 Dose: 125 mg Oxymetazoline HCl (Afrin Original 0.05% Nasal [place]) 0 ml TOBY BID [facility] Last Admin: 05/21/18 08:34 Dose: 1 spr Potassium Chloride (Klor-Con M20) 40 meq PO ONETIME ONE Stop: 05/20/18 01:27 Last Admin: 05/20/18 01:58 Dose: 40 meq Potassium Chloride (Klor-Con M20) 40 meq PO BID [facility] Stop: 05/21/18 09:01 Last Admin: 05/21/18 08:35 Dose: 40 meq
== END 2018-05-23 13:21 | disposition home or self-care (01) ==
LOC: MW.ED 00:47 → MW.MS 01:49
PROVIDERS: ADMIT Internal Medicine; ATTEND Internal Medicine
DX: J45.41 Moderate persistent asthma with (acute) exacerbation (principal); D64.9 Anemia, unspecified; E87.6 Hypokalemia; J40 Bronchitis, not specified as acute or chronic; J32.9 Chronic sinusitis, unspecified; Z79.899 Other long term (current) drug therapy; Z91.048 Other nonmedicinal substance allergy status
CPT/HCPCS: 36415; 71045; 80048; 83735; 84100; 85025; 94640; 96365; 96375; 99285; A9270; J1956; J2930; J3475; 96366; 96367; 96376; G0378; J7620-GY

== ENCOUNTER 2020-11-13 23:19 | Emergency (ER) | payer OTHER ==
[2020-11-13] MEDS ORDERED: predniSONE 20 MG Tab PO ONE (23:42)
[2020-11-13] MEDS ORDERED: Albuterol 0.083% 2.5 MG/3 ML Neb Soln NEB ONE (23:44)
--- NOTE | 2020-11-14 00:12 | CR ---
HISTORY: Shortness of breath. COMPARISON: None available FINDINGS: A portable erect AP view of the chest was obtained at 23 51 hours. The lungs are clear. No focal or diffuse infiltrates are present. Prominence of interstitial markings in the lower lungs is simply the result of prominent overlying soft tissue. The heart is normal in size. The mediastinum is normal in appearance. The osseous structures are normal in appearance for the patient`s age. IMPRESSION: Normal portable chest single view. Dictated by Miguel Nguyễn MD @ Nov 14 2020 12:11AM Signed by Dr. Miguel Nguyễn @ Nov 14 2020 12:12AM
[2020-11-14 00:51] LABS: CORONAVIRUS COVID-19 NAA POSITIVE (NEGATIVE); INFLUENZA A NAA NEGATIVE (NEGATIVE); INFLUENZA B NAA NEGATIVE (NEGATIVE); RESPIRATORY SYNCYTIAL VIR NAA NEGATIVE (NEGATIVE)
--- NOTE | 2020-11-14 00:55 | EDM.PDOC ---
ED HPI GENERAL MEDICAL PROBLEM - General Chief Complaint: Respiratory Problem Stated Complaint: DIFFICULTY BREATHING Time Seen by Provider: 11/13/20 23:39 - History of Present Illness INITIAL COMMENTS - FREE TEXT/NARRATIVE: HISTORY AND PHYSICAL: History of present illness: This is a 40-year-old female with history significant for asthma who presents to the ER today complaining of shortness of breath and wheezing that started earlier this evening. Patient has any recent fevers, shakes, chills. Patient reports a nonproductive cough. Patient denies any nausea, vomiting, diarrhea, dysuria, frequency, urgency, abdominal pain, chest pain. Patient reports that she works at [employer]. Patient reports possible exposure to Covid given her occupation. Patient reports that she is used her MDIs at home without any significant relief. Patient has a nebulizer but she did not use that stating that she knows the one we have here is better so she came to the ER for systems. Review of systems: As per history of present illness and below otherwise all systems reviewed and negative. Past medical history: As per history of present illness and as reviewed below otherwise noncontributory. Surgical history: As per history of present illness and as reviewed below otherwise noncontributory. Social history: No reported history of drug or alcohol abuse. Family history: As per history of present illness and as reviewed below otherwise noncontributory. Physical exam: This patient was seen and evaluated during the 2019 SARS-CoV-2 novel coronavirus pandemic period. Community viral transmission is ongoing at time of this encounter and the emergency department is operating under pandemic response procedures. Constitutional: Patient is oriented to person, place, and time. Appears well- developed and well-nourished. No distress. HEENT: Moist mucous membranes Head: Normocephalic and atraumatic Eyes: Right eye exhibits no discharge. Left eye exhibits no discharge. No scleral icterus Neck: Normal range of motion. No tracheal deviation present. Cardiovascular: Normal rate and regular rhythm. Pulmonary: Effort normal, no respiratory distress. Positive expiratory wheezing, no tachypnea, patient able to speak in full sentences without difficulty. Patient does not appear to be in any acute respiratory distress at this time. Abdominal: No distention Musculoskeletal: Normal range of motion Neurologic: Alert and oriented to person, place and time. Skin: [place], warm and dry. Psychiatric: Normal mood and affect. Behavior is normal. Judgment and thought content normal. Nursing note and vital signs have been reviewed Diagnostics: Chest Xray: Normal cardiac silhouette No infiltrates or effusions identified. No PTX No evidence of acute bony fracture. As interpreted by ER MD: Perri Coronavirus test is positive. Therapeutics: Albuterol 2.5x3 nebulized in the ED Prednisone 50 mg p.o. in ED Assessment and plan: 40-year-old female with history significant for asthma presents ER today with signs and symptoms consistent with an asthma exacerbation with likely upper respiratory infection. We have sent off a Covid test, influenza and RSV test and are pending the results. Patient's chest x-ray does not reveal any evidence of pneumonia. While the patient is in the ED she did receive albuterol neb x3, prednisone p.o. and reports that she feels much improved at 1245 during my reevaluation. Patient is ambulating the ED with stable gait without any shortness of breath. Patient's pulse ox currently is 95 to 97% on room air. Patient's coronavirus test is positive. Patient is pulse oxing well at this time does not meet inpatient criteria for admission. Patient will be started on steroids secondary to her wheezing and asthma exacerbation. Antibiotics are not indicated at this time. I have discussed with the patient the need to self quarantine and to notify all people that she has been in contact with including her work that her coronavirus test is positive. Patient will need to consult with the health department for isolation and contact tracing. Reassessment at the time of disposition demonstrates that the patient is in no acute distress. The patient has remained stable throughout the entire ED visit and is without objective evidence for acute process requiring urgent intervention or hospitalization. The patient is stable for discharge, counseling is provided as documented above, discussed symptomatic treatment and specific conditions for return. I have spoken with the patient/caregiver and discussed todays findings, in addition to providing specific details for the plan of care. Questions are answered and there is agreement with the plan. Definitive disposition and diagnosis as appropriate pending reevaluation and review of above. - Related Data Allergies Allergy/AdvReac Type Severity Reaction Status Date / Time fluticasone Allergy Airway Verified 11/13/20 23:27 [From Advair Diskus] Tightness pollen extracts Allergy Airway Verified 11/13/20 23:27 Tightness salmeterol Allergy Airway Verified 11/13/20 23:27 [From Advair Hennessyus] Tightness cats Allergy Airway Uncoded 11/13/20 23:27 Tightness dogs Allergy Airway Uncoded 11/13/20 23:27 Tightness dust Allergy Airway Uncoded 11/13/20 23:27 Tightness environmental Allergy Airway Uncoded 11/13/20 23:27 Tightness perfume Allergy Airway Uncoded 11/13/20 23:27 Tightness pollen Allergy Airway Uncoded 11/13/20 23:27 Tightness Home Meds: Home Meds Albuterol Sulfate 1.25 mg IH Q4HR PRN 05/20/18 [History] Albuterol [Proventil HFA] 200 puff INH Q6H 05/20/18 [History] Mometasone Furoate [Asmanex] 220 mcg IH DAILY #1 aer.pow.ba 05/23/18 [Rx] levoFLOXacin [Levaquin] 500 mg PO DAILY #3 tab 05/23/18 [Rx] predniSONE [Prednisone] 50 mg PO DAILY #3 tablet 05/23/18 [Rx] predniSONE [Prednisone] 50 mg PO DAILY #5 tablet 11/14/20 [Rx] Past Medical History Respiratory History: Reports: Asthma - Infectious Disease History Infectious Disease History: Reports: Chicken Pox - Past Surgical History HEENT Surgical History: Reports: Other (See Below) Other HEENT Surgeries/Procedures: [place] teeth surgically removed Social & Family History - Family History Family Medical History: No Pertinent Family History - Caffeine Use Caffeine Use: Reports: None Other Caffeine Use: 1 per day - Recreational Drug Use Recreational Drug Use: No ED ROS GENERAL - Review of Systems Review Of Systems: See Below ED EXAM, GENERAL - Physical Exam Exam: See Below Course - Vital Signs Last Recorded V/S: Last Vital Signs Temp 98.8 F 11/13/20 23:25 Pulse 121 H 11/14/20 00:52 Resp 18 11/14/20 00:52 BP 130/72 11/14/20 00:52 Pulse Ox 96 11/14/20 00:52 - Orders/Labs/Meds Orders: Active Orders 24 hr Category Date Time Status RT Aerosol Therapy [RC] ASDIRECTED Care 11/13/20 23:44 Active Labs: Laboratory Tests 11/14/20 Range/Units 00:00 Influenza Type A RNA NEGATIVE (NEGATIVE) RSV RNA (INAAT) NEGATIVE (NEGATIVE) Influenza Type B RNA NEGATIVE (NEGATIVE) SARS-CoV-2 RNA (YENNIFER) POSITIVE H (NEGATIVE) Meds: Medications Discontinued Medications Generic Name Dose Route Start Last Admin Trade Name Chong PRN Reason Stop Dose Admin Albuterol 7.5 mg 11/13/20 23:44 11/14/20 00:00 Proventil Neb Soln NEB 11/13/20 23:45 7.5 mg ONETIME ONE Administration Prednisone 50 mg 11/13/20 23:42 11/14/20 00:00 Prednisone PO 11/13/20 23:43 50 mg ONETIME ONE Administration Departure - Departure Time of Disposition: :27 Disposition: Home, Self-Care 01 Condition: Good Clinical Impression: Respiratory tract infection due to COVID-19 virus Asthma with acute exacerbation Qualifiers: Asthma severity: moderate Asthma persistence: persistent Qualified Code(s): J45.41 - Moderate persistent asthma with (acute) exacerbation - Discharge Information Instructions: COVID-19: What Your Test Results Mean - CDC, COVID-19: How to Protect Yourself and Others - CDC, Similarities and Differences Between Flu and COVID-19 - CDC, COVID-19: Quarantine vs. Isolation - CDC, 10 Things You Can Do to Manage Your COVID-19 Symptoms at Home - CDC, Asthma Attack Referrals: PCP,None [Primary Care Provider] - Forms: ED Department Discharge Additional Instructions: You have been seen and evaluated in ER today secondary to your shortness of breath. It appears that your shortness of breath is secondary to an exacerbation of asthma which has likely been brought on by your COVID-19 infection. You will need to quarantine for 10 days. Please make sure that you notify your work as well as the health department regarding her infection so that they can assist with allowing others to might have been exposed to get tested. Please go home and get plenty of rest. At this time you do not meet criteria for inpatient level of care given your oxygenation level has been adequate. Although there is no specific treatment for coronavirus, we are going to start you on prednisone since you do have an asthma exacerbation in the prednisone might assist you with your wheezing. Please continue taking your asthma medications as directed. 1. Your COVID-19 screening is positive. That means you do have the coronavirus and you are considered contagious. Your vital signs and oxygen saturation are well enough that you were able to monitor your symptoms at home. Continue to monitor for trouble breathing, new confusion or inability to arouse, bluish lips or face or any of the other symptoms we discussed -if this occurs please return to the emergency room. 2. Please self quarantine over the next 10 days. Inform any persons that you have been in contact with since you started becoming symptomatic that you have tested positive; they should be made aware and take the appropriate steps as needed. 3. You can take NyQuil during the evening to help get a restful night sleep. May alternate Tylenol and ibuprofen as needed for pain and fever management. 4. The [facility] will be calling you and following up with you. The [place] [facility] Hotline phone number , They are open Wednesday - Wed 7am - 7pm. Follow up with your primary care provider for re-evaluation and re-testing after the 10 day quarantine and discuss when you should be seen. The following information is given to patients seen in the emergency department who are being discharged to home. This information is to outline your options for follow-up care. We provide all patients seen in our emergency department with a follow-up referral. The need for follow-up, as well as the timing and circumstances, are variable depending upon the specifics of your emergency department visit. If you don't have a primary care physician on staff, we will provide you with a referral. We always advise you to contact your personal physician following an emergency department visit to inform them of the circumstance of the visit and for follow-up with them and/or the need for any referrals to a consulting specialist. The emergency department will also refer you to a specialist when appropriate. This referral assures that you have the opportunity for follow-up care with a specialist. All of these measure are taken in an effort to provide you with optimal care, which includes your follow-up. Under all circumstances we always encourage you to contact your private physician who remains a resource for coordinating your care. When calling for follow-up care, please make the office aware that this follow-up is from your recent emergency room visit. If for any reason you are refused follow-up, please contact the [facility] Emergency Department at and asked to speak to the emergency department charge nurse. Liz Garrett [facility] - Primary Care [address], [place] [address] [facility] [address] [place] [id number] Sepsis Event Note (ED) - Evaluation Sepsis Screening Result: No Definite Risk - Focused Exam Vital Signs: Vital Signs Temp Pulse Resp BP Pulse Ox 11/14/20 00:52 121 H 18 130/72 96 11/13/20 23:25 98.8 F 108 H 18 145/95 H 94 L - My Orders Last 24 Hours: My Active Orders 11/13/20 23:44 RT Aerosol Therapy [RC] ASDIRECTED - Assessment/Plan Last 24 Hours: My Active Orders 11/13/20 23:44 RT Aerosol Therapy [RC] ASDIRECTED
[2020-11-14] MEDS ORDERED: Ibuprofen 600 MG Tab PO ONE (01:28)
[2020-11-14] MEDS ORDERED: Acetaminophen 325 MG Tab PO ONE (01:28)
== END 2020-11-14 01:40 | disposition home or self-care (01) ==
LOC: MW.ED 23:19
DX: U07.1 COVID-19 (principal); J98.8 Other specified respiratory disorders; J45.41 Moderate persistent asthma with (acute) exacerbation; Z88.8 Allergy status to other drugs, medicaments and biological substances; Z91.048 Other nonmedicinal substance allergy status; Z79.899 Other long term (current) drug therapy
CPT/HCPCS: 0241U; 71045; 99285; A9270; 99283

== ENCOUNTER 2020-12-25 09:47 | Emergency (ER) | payer OTHER ==
--- NOTE | 2020-12-25 10:07 | EDM.PDOC ---
ED HPI GENERAL MEDICAL PROBLEM - General Chief Complaint: Respiratory Problem Stated Complaint: SOB Time Seen by Provider: 12/25/20 09:49 Source of Information: Reports: Patient History Limitations: Reports: No Limitations - History of Present Illness INITIAL COMMENTS - FREE TEXT/NARRATIVE: 40-year-old female past medical history asthma presents for shortness of breath. Patient notes that she was having some allergy-like symptoms with runny nose and nasal drainage over the weekend. She began to feel better but over the last couple of days has noted worsening asthma symptoms with chest tightness, mildly productive cough, shortness of breath. She does have AN albuterol inhaler at home but she ran out of albuterol for her nebulizer. She is not been on steroids recently. - Related Data Allergies Allergy/AdvReac Type Severity Reaction Status Date / Time fluticasone Allergy Airway Verified 12/25/20 10:17 [From Advair Diskus] Tightness pollen extracts Allergy Airway Verified 12/25/20 10:17 Tightness salmeterol Allergy Airway Verified 12/25/20 10:17 [From Advair Diskus] Tightness cats Allergy Airway Uncoded 12/25/20 10:17 Tightness dogs Allergy Airway Uncoded 12/25/20 10:17 Tightness dust Allergy Airway Uncoded 12/25/20 10:17 Tightness environmental Allergy Airway Uncoded 12/25/20 10:17 Tightness perfume Allergy Airway Uncoded 12/25/20 10:17 Tightness pollen Allergy Airway Uncoded 12/25/20 10:17 Tightness Home Meds: Home Meds Albuterol Sulfate 1.25 mg IH Q4HR PRN 05/20/18 [History] Albuterol [Proventil HFA] 200 puff INH Q6H 05/20/18 [History] Mometasone Furoate [Asmanex] 220 mcg IH DAILY #1 [email or web address] 05/23/18 [Rx] levoFLOXacin [Levaquin] 500 mg PO DAILY #3 tab 05/23/18 [Rx] predniSONE [Prednisone] 50 mg PO DAILY #3 tablet 05/23/18 [Rx] predniSONE [Prednisone] 50 mg PO DAILY #5 tablet 11/14/20 [Rx] Albuterol Sulfate 1.25 mg IH Q4H PRN #1 box 12/25/20 [Rx] Albuterol Sulfate [Proair Hfa] 8.5 gm IH Q4H PRN #1 inhaler 12/25/20 [Rx] Mometasone Furoate 100mcg [Asmanex HFA 100mcg] 13 gm IH DAILY #1 inhaler 12/25/20 [Rx] predniSONE [Prednisone] 40 mg PO DAILY 5 Days #10 tablet 12/25/20 [Rx] Past Medical History Respiratory History: Reports: Asthma - Infectious Disease History Infectious Disease History: Reports: Chicken Pox - Past Surgical History HEENT Surgical History: Reports: Other (See Below) Other HEENT Surgeries/Procedures: Otoe teeth surgically removed Social & Family History - Family History Family Medical History: No Pertinent Family History - Caffeine Use Caffeine Use: Reports: None Other Caffeine Use: 1 per day ED ROS GENERAL - Review of Systems Review Of Systems: Comprehensive ROS is negative, except as noted in HPI. ED EXAM, GENERAL - Physical Exam Exam: See Below Exam Limited By: No Limitations General Appearance: Alert, WD/WN, No Apparent Distress Ears: Normal External Exam Throat/Mouth: Normal Voice, No Airway Compromise Head: Atraumatic, Normocephalic Neck: Normal Inspection Respiratory/Chest: No Respiratory Distress, No Accessory Muscle Use, Wheezing Cardiovascular: Normal Peripheral Pulses, Regular Rate, Rhythm Extremities: Normal Inspection Neurological: Alert Psychiatric: Normal Affect, Normal Mood Skin Exam: Warm, Dry, Intact, Normal Color Course - Vital Signs Last Recorded V/S: Last Vital Signs Temp 97.4 F 12/25/20 10:04 Pulse 89 12/25/20 10:04 Resp 24 H 12/25/20 10:04 BP 147/81 H 12/25/20 10:04 Pulse Ox 95 12/25/20 10:04 - Orders/Labs/Meds Orders: Active Orders 24 hr Category Date Time Status RT Aerosol Therapy [RC] ASDIRECTED Care 12/25/20 10:16 Active Chest 1V Frontal [CR] Stat Exams 12/25/20 10:15 Taken Meds: Medications Discontinued Medications Generic Name Dose Route Start Last Admin Trade Name Freq PRN Reason Stop Dose Admin Albuterol/Ipratropium 3 ml 12/25/20 10:16 12/25/20 10:56 Albuterol/Ipratropium 3.0-0.5 Mg/3 Ml Neb Soln NEB 12/25/20 10:17 3 ml ONETIME ONE Administration Dexamethasone 10 mg 12/25/20 10:16 12/25/20 10:56 Dexamethasone 10 Mg/Ml Sdv IM 12/25/20 10:17 10 mg ONETIME ONE Administration - Re-Assessments/Exams Free Text/Narrative Re-Assessment/Exam: 12/25/20 10:20 Will give duoneb and prednisone for asthma; will get CXR to r/o PNA. 12/25/20 11:10 Chest x-ray unremarkable. Will discharge with prednisone and albuterol for patient's home nebulizer machine. Departure - Departure Time of Disposition: 11:10 Disposition: Home, Self-Care 01 Condition: Good Clinical Impression: Asthma exacerbation Qualifiers: Asthma severity: moderate Asthma persistence: persistent Qualified Code(s): J45.41 - Moderate persistent asthma with (acute) exacerbation - Discharge Information Prescriptions: Albuterol Sulfate 1.25 mg IH Q4H PRN #1 box PRN Reason: Wheezing predniSONE [Prednisone] 40 mg PO DAILY 5 Days #10 tablet Instructions: Asthma, Adult Referrals: PCP,None [Primary Care Provider] - Forms: ED Department Discharge Additional Instructions: Your chest x-ray does not reveal any evidence of pneumonia. You are likely experiencing asthma exacerbation which may be secondary to your allergies over the weekend and postnasal drip as we discussed. I have sent a prescription for albuterol for your nebulizer to your pharmacy. I have also sent a prescription for steroids for the next 5 days. If your shortness of breath is worsening despite these medications you should return to the emergency department. The following information is given to patients seen in the emergency department who are being discharged to home. This information is to outline your options for follow-up care. We provide all patients seen in our emergency department with a follow-up referral. The need for follow-up, as well as the timing and circumstances, are variable depending upon the specifics of your emergency department visit. If you don't have a primary care physician on staff, we will provide you with a referral. We always advise you to contact your personal physician following an emergency department visit to inform them of the circumstance of the visit and for follow-up with them and/or the need for any referrals to a consulting specialist. The emergency department will also refer you to a specialist when appropriate. This referral assures that you have the opportunity for follow-up care with a specialist. All of these measure are taken in an effort to provide you with optimal care, which includes your follow-up. Under all circumstances we always encourage you to contact your private physician who remains a resource for coordinating your care. When calling for follow-up care, please make the office aware that this follow-up is from your recent emergency room visit. If for any reason you are refused follow-up, please contact the [facility] at and asked to speak to the emergency department charge nurse. Please follow up with your primary care physician. If you do not have a primary care physician, see below: [facility] [address] [place] [id number] [address] [facility] [address] [place] [address] [facility] [address] [place] [address] Sepsis Event Note (ED) - Focused Exam Vital Signs: Vital Signs Temp Pulse Resp BP Pulse Ox 12/25/20 10:04 97.4 F 89 24 H 147/81 H 95 - My Orders Last 24 Hours: My Active Orders 12/25/20 10:15 Chest 1V Frontal [CR] Stat 12/25/20 10:16 RT Aerosol Therapy [RC] ASDIRECTED - Assessment/Plan Last 24 Hours: My Active Orders 12/25/20 10:15 Chest 1V Frontal [CR] Stat 12/25/20 10:16 RT Aerosol Therapy [RC] ASDIRECTED
[2020-12-25] MEDS ORDERED: Dexamethasone 10 MG/ML SDV IM ONE (10:16)
[2020-12-25] MEDS ORDERED: Albuterol/Ipratropium 3.0-0.5 MG/3 ML Neb Soln NEB ONE (10:16)
--- NOTE | 2020-12-25 11:28 | CR ---
CHEST 1 VIEW AP INDICATION: Short of breath. IMPRESSION: Normal heart size and vascular pattern. Lungs are clear of focal opacities. No pneumothorax or pleural abnormality. Dictated by Dennys Jackson MD @ Dec 25 2020 11:26AM Signed by Dr. Dennys Jackson @ Dec 25 2020 11:26AM
== END 2020-12-25 11:21 | disposition home or self-care (01) ==
LOC: MW.ED 09:47
DX: J45.41 Moderate persistent asthma with (acute) exacerbation (principal); Z91.048 Other nonmedicinal substance allergy status; Z79.899 Other long term (current) drug therapy; Z88.8 Allergy status to other drugs, medicaments and biological substances; Z91.09 Other allergy status, other than to drugs and biological substances
CPT/HCPCS: 71045; 96372; 99285; J1100; 99283; J7620-GY